=== PATIENT | female | born 2000 | race African-American/Black ===

== ENCOUNTER 2019-08-10 23:38 | Emergency (ER) | payer MEDICAID ==
[~2019-08-10] VITALS: Ht 157.5 cm; Wt 69.0 kg
[2019-08-11 02:21] VITALS: BP 110/66
== END 2019-08-11 02:21 | disposition home or self-care (01) ==
LOC: ER 23:38
DX: H60.91 Unspecified otitis externa, right ear (principal); H61.21 Impacted cerumen, right ear
CPT/HCPCS: 99283; C1893